=== PATIENT | male | born 2000 | race Caucasian/White ===

== ENCOUNTER 2019-01-12 15:48 | Inpatient (IN) ==
[2019-01-12] MEDS ORDERED: *HR* LORazepam 1 MG TABLET PO ONE (16:31)
[2019-01-12] MEDS ORDERED: Nicotine 21 MG PATCH.TD24 TD PRN (16:45)
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
[2019-01-12 17:01] LABS: Basophils % 0.5 %; Eosinophils # 0.1 K/mcL (0.0-0.6); Eosinophils % 1.6 %; Hematocrit 46.9 % (37.5-50.1); Hemoglobin 16.4 g/dL (12.9-16.9); Immature Granulocytes % 0.3 % (0-4); Lymphocytes # 1.7 K/mcL (0.6-4.6); Lymphocytes % 22.5 %; Mean Corpuscular Hemoglobin 29.5 pg (28.0-33.3); Mean Corpuscular Volume 84.5 fL (83.0-100.0); Mean Platelet Volume 11.2 fL (9.4-12.4); Monocytes # 0.6 K/mcL (0.0-1.3); Platelet Count 236 K/mcL (140-400); Red Blood Count 5.55 M/mcL (4.19-5.50); Red Cell Distribution Width 12.1 % (11.5-14.5); Segmented Neutrophils % 67.1 %
[2019-01-12 17:17] LABS: Bilirubin,Urine Negative (Negative); Blood,Urine Negative (Negative); Clarity,Urine Clear (Clear); Color,Urine Yellow (Yellow); Glucose,Urine (UA) Normal (Normal); Ketones,Urine Negative (Negative); Leukocyte Esterase,Urine Negative (Negative); Nitrite,Urine Negative (Negative); PH,Urine 6.5 pH Units (5.0-8.0); Protein,Urine Negative (Neg-Trace); Specific Gravity,Urine 1.014 (1.010-1.025); Urobilinogen,Urine Normal (Normal)
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
[2019-01-12 17:32] LABS: Acetaminophen < 10 mcg/mL (10-20); BUN/Creatinine Ratio 15 (6-26); Blood Urea Nitrogen 14 mg/dL (6-20); Calcium 10.2 mg/dL (8.6-10.3); Carbon Dioxide 23 mEq/L (23-29); Chloride 105 mEq/L (98-107); Ethanol < 10 mg/dL (Less than 10); Glucose 95 mg/dL (70-105); Osmolality,Calculated 290 (280-300); Potassium 3.9 mEq/L (3.5-5.1); Salicylate < 2.5 mg/dL (15.0-30.0); Sodium 140 mEq/L (136-145); eGFR For Non-African Americans > 60
[2019-01-12 17:36] LABS: Amphetamine Screen,Urine Negative ng/mL (Cutoff=1000); Barbiturate Screen,Urine Negative ng/mL (Cutoff=200); Benzodiazepines Screen,Urine Negative ng/mL (Cutoff=200); Cannabinoid Screen,Urine Positive ng/mL (Cutoff = 50); Cocaine Screen,Urine Negative ng/mL (Cutoff= 300); Opiate Screen,Urine Negative ng/mL (Cutoff=300); Phencyclidine Screen,Urine Negative ng/mL (Cutoff=25)
[2019-01-12] MEDS ORDERED: Mag Hydrox/Al Hydrox/Simeth 30 ML UDC PO PRN (18:59)
[2019-01-12] MEDS ORDERED: *HR* LORazepam 2 MG/ML VIAL IM PRN (18:59)
[2019-01-12] MEDS ORDERED: MOM Conc 10 ML UD.LIQ PO PRN (18:59)
[2019-01-12] MEDS ORDERED: Acetaminophen 325 MG TABLET PO PRN (18:59)
[2019-01-12] MEDS ORDERED: *HR* LORazepam 1 MG TABLET PO PRN (18:59)
[2019-01-12] MEDS ORDERED: Haloperidol Lactate 5 MG/ML VIAL IM PRN (18:59)
[2019-01-12] MEDS ORDERED: Ibuprofen 400 MG TABLET PO PRN (19:40)
[2019-01-13] MEDS: hydrOXYzine pamoate 25 MG CAPSULE PO PRN ×2 (00:14→21:59)
[2019-01-13] MEDS: traZODone 50 MG TABLET PO PRN ×2 (00:14→21:59)
[2019-01-13] MEDS: Nicotine 21 MG PATCH.TD24 TD SCH (08:52)
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
[2019-01-14] MEDS: Nicotine 21 MG PATCH.TD24 TD SCH (08:32)
--- NOTE | 2019-01-14 09:24 | Discharge Summary ---
Date of Encounter: 01/14/19 Time of Encounter: 09:20 Diagnosis - Discharge Diagnosis (1) Mood disorder Status: Acute Medications - Discharge Medications Prescriptions: Sertraline [Zoloft] 50 mg PO DAILY #30 tablet Sertraline [Zoloft] 50 mg PO DAILY #30 tablet 01/14/19 [Rx] Allergy/AdvReac Type Severity Reaction Status Date / Time No Known Allergies Allergy Verified 01/12/19 15:57 Results Procedures and tests throughout hospitalization: Completed Lab Orders Category Date Time Status Acetaminophen Stat Lab 01/12/19 16:48 Completed Basic Metabolic Panel Stat Lab 01/12/19 16:48 Completed Complete Blood Count [HEME] Stat Lab 01/12/19 16:48 Completed Drug Screen, Urine [UCHEM] Stat Lab 01/12/19 17:01 Completed Ethanol Stat Lab 01/12/19 16:48 Completed Salicylate Stat Lab 01/12/19 16:48 Completed Urinalysis reflex Microscopic [URIN] Stat Lab 01/12/19 17:01 Completed Provider Date of admission: 01/12/19 18:29 Primary care physician: PCP NONE Discharging clinician: Emily Elias Psychiatry Exam - Constitutional Vitals: Temp Pulse Resp BP Pulse Ox 98.1 F 85 16 119/75 100 01/13/19 19:25 01/13/19 19:25 01/13/19 19:25 01/13/19 19:25 01/13/19 19:25 General appearance: age & developmentally appropriate, well-groomed, well- nourished - Musculoskeletal Gait: normal Station: relaxed Strength & Tone: normal for patient - Psychiatric Patient Orientation: Yes Person, Yes Time, Yes Place Level of alertness: Alert Behavior: calm, cooperative Psychomotor activity: Normal Eye Contact: Maintains Eye Contact Mood Description: Anxious Affect description: congruent with mood Speech Volume: Normal Speech pattern: normal rate, normal rhythm, normal tone, fluent, spontaneous Language & Vocabulary: consistent with education Thought Process: Linear, Goal Oriented Thought Content: No Suicidal ideation, No Homicidal ideation, No Overt delusions Perceptual Disturbances: No Auditory hallucinations, No Visual hallucinations Attention Span Ability: Capable of Focused Attention Memory Description: Grossly Intact Patient Reliability: Reliable Historian Fund of knowledge: Yes abstraction ability, Yes aware of current events Intelligence Estimate: Average Judgment: Limited Insight: Partial Hospital Course Hospital course: Mr. Palacios is a 18 year old male who was admitted after threatening suicide. Per client's report in the ER he found a gun at his friend's house and put it in his mouth. His friend's mother then came home and took the gun away from him. After being admitted client reported he made up the story for attention. Client indicated his girlfriend recently broke up with him and he moved in with his friend and his friend's mother. After the break-up client stated his family embraced his ex and more or less started ignoring him. Client stated he made up the story about the gun to get his family's attention thinking they would feel sorry for him. Mother and grandmother visited last night. Client told them the truth and states they were upset with him but are still supportive. Client intends to move in with mother and stepfather when he is discharged. He was started on Zoloft with good clinical results. He is being linked with outpatient providers and client states he will follow up with treatment in the community. On the unit he has been pleasant and without behavior problems. He has been interacting with his peers and staff. Sleeping and eating well. Today he denies any SI, intent, or plan. Denies HI/AH/VH. Future oriented. Looks stable for discharge. Total time spent with client greater than 30 minutes. Patient was educated of his diagnosis and the risks, benefits, and side effects of this treatment and alternative treatment options and was monitored for responsiveness and side effects. Mood, anxiety, sleep, appetite, and interest improved, as did future orientation. Self-harm thoughts subsided, thinking cleared, psychosis resolved, and mood stabilized. Patient was able to attend both individual and group therapy sessions as well as meeting with the psychiatrist daily and urged to discuss any medication or treatment issues or other concerns. The patient was educated primarily by verbal means about their diagnosis and manifestations in their life. The option for treatment including group and individual therapy programming was offered to the patient in the use of medications with all their potential risks, benefits, and side effects were discussed with the patient at length. The patient was given the opportunity to ask questions and was noted to participate in the treatment in the planning process. The patient felt ready and eager to be discharged from the inpatient psychiatric unit to continue on with treatment as an outpatient. The patient agreed that he is safe for this disposition. The patient was considered to be able to participate in informed consent and decision making with respect to medical, legal, and financial issues of the time of discharge. At the time of discharge the patient adamantly denied any concerns for lethality including suicidal or homicidal thoughts ideations or plans and was future oriented toward ongoing mental health care, medical follow-up and sobriety. - Time Spent with Patient Total time spent providing and/or coordinating discharge services: Assessment and Plan - Patient/Caregiver Discharge Instructions Activity: resume usual activities as tolerated Diet: regular diet - Follow up Plan Follow up with: NONE,PCP [Primary Care Provider] - Overall status at discharge: Stable Disposition: Home, Self-Care Quality - Multiple Antipsychotics Patient discharged on 2 or more antipsychotic medications: No Procedures - Procedures Procedures: Medication Management, Crisis Stabilization, Supportive Therapy, Group Therapy
[2019-01-14 09:29] VITALS: BP 125/86
== END 2019-01-14 11:40 | disposition home or self-care (01) | DRG 754 ==
LOC: EMEROOARM 15:48 → 1ANU 18:29
PROVIDERS: ADMIT Psychiatry & Neurology Psychiatry; ATTEND Psychiatry & Neurology Psychiatry